=== PATIENT | female | born 1985 | race Caucasian/White ===

== ENCOUNTER → 2016-07-19 | Outpatient (CLI) | payer BC ==
[~2016-07-19] MED LIST: BUPR-267 PO; ESCI1TAB6 PO; PRENTAB69 PO
== END | disposition home or self-care (01) ==
LOC: C.LAB1850 10:06
PROVIDERS: ATTEND Obstetrics & Gynecology
DX: E03.9 Hypothyroidism, unspecified (principal)

== ENCOUNTER → 2016-11-22 | Outpatient (CLI) | payer BC ==
[2016-11-22 19:27] LABS: URINE APPEARANCE CLEAR (CLEAR); URINE BILIRUBIN NEG (NEG); URINE COLOR YELLOW; URINE EPITHELIAL CELL AUTO >30 /lpf (0-5); URINE NITRITE NEG (NEG); URINE PH 6.5 (4.5-7.5); URINE SPECIFIC GRAVITY 1.015 (1.000-1.030); UROBILINOGEN NEG (NEG)
[2016-11-22 19:28] LABS: MANUAL MICROSCOPIC REQUIRED? NO; REVIEW REQ? NO
== END | disposition home or self-care (01) ==
LOC: C.LABSPEC 17:38
PROVIDERS: ATTEND Obstetrics & Gynecology
DX: O09.00 Supervision of pregnancy with history of infertility, unspecified trimester (principal); Z3A.00 Weeks of gestation of pregnancy not specified

== ENCOUNTER → 2016-11-29 | Outpatient (CLI) | payer BC | END | disposition home or self-care (01) | LOC: C.PAPS 14:14 | PROVIDERS: ATTEND Obstetrics & Gynecology | DX: Z01.419 Encounter for gynecological examination (general) (routine) without abnormal findings (principal) ==

== ENCOUNTER → 2016-11-29 | Outpatient (CLI) | payer BC ==
[2016-11-29 12:11] LABS: BASO % 0.1 %; BASO ABS # 0.01 K/uL (0-0.2); COMPLETE YES; EOS % 0.2 %; IG% 0.1 %; LYMPH % 20.6 %; MEAN CELL VOLUME 90.9 fL (80-100); MEAN CORPUSCULAR HEMOGLOBIN 30.7 pg (25-34); MEAN CORPUSCULAR HGB CONC 33.8 g/dl (32-36); MEAN PLATELET VOLUME 10.6 fL (7.4-10.4); MONO % 6.8 %; NEUT % 72.2 %; PLATELET COUNT 262 K/uL (130-400); RED BLOOD COUNT 4.07 M/uL (4.2-5.4); WHITE BLOOD COUNT 8.72 K/uL (4.8-10.8)
[2016-11-29 13:21] LABS: THYROID STIMULATING HORMONE 1.75 uIu/ml (0.300-4.500)
[2016-12-03 07:06] LABS: CHLAMYDIA TRACH RNA*** NOT DETECTED (NOT DETECTED); GC (NEIS GONORRHOEAE)RNA** NOT DETECTED (NOT DETECTED)
== END | disposition home or self-care (01) ==
LOC: C.LAB1850 10:40
PROVIDERS: ATTEND Obstetrics & Gynecology
DX: O09.00 Supervision of pregnancy with history of infertility, unspecified trimester (principal); Z3A.00 Weeks of gestation of pregnancy not specified

== ENCOUNTER → 2016-12-27 | Outpatient (CLI) | payer BC ==
[2016-12-27 18:09] LABS: THYROID STIMULATING HORMONE 1.13 uIu/ml (0.300-4.500)
== END | disposition home or self-care (01) ==
LOC: C.LAB1850 16:07
PROVIDERS: ATTEND Obstetrics & Gynecology
DX: E03.9 Hypothyroidism, unspecified (principal)

== ENCOUNTER → 2017-01-18 | Outpatient (CLI) | payer BC ==
[2017-01-18 17:29] LABS: GTGD 50 Grams
[2017-01-18 17:45] LABS: THYROID STIMULATING HORMONE 1.23 uIu/ml (0.300-4.500)
== END | disposition home or self-care (01) ==
LOC: C.LAB1850 15:35
PROVIDERS: ATTEND Obstetrics & Gynecology
DX: O09.02 Supervision of pregnancy with history of infertility, second trimester (principal); E03.9 Hypothyroidism, unspecified

== ENCOUNTER → 2017-04-11 | Outpatient (CLI) | payer BC ==
[2017-04-11 16:31] LABS: HEMATOCRIT 31.6 % (37-47)
[2017-04-11 17:57] LABS: GTGD 50 Grams
== END | disposition home or self-care (01) ==
LOC: C.LAB1850 15:31
PROVIDERS: ATTEND Obstetrics & Gynecology
DX: O09.03 Supervision of pregnancy with history of infertility, third trimester (principal)

== ENCOUNTER → 2017-05-09 | Outpatient (CLI) | payer BC ==
[2017-05-09 18:17] LABS: URINE APPEARANCE CLEAR (CLEAR); URINE BILIRUBIN NEG (NEG); URINE COLOR YELLOW; URINE EPITHELIAL CELL AUTO >30 /lpf (0-5); URINE NITRITE NEG (NEG); URINE SPECIFIC GRAVITY 1.009 (1.000-1.030); UROBILINOGEN NEG (NEG)
[2017-05-09 18:20] LABS: MANUAL MICROSCOPIC REQUIRED? NO; REVIEW REQ? NO
== END | disposition home or self-care (01) ==
LOC: C.LABSPEC 17:38
PROVIDERS: ATTEND Obstetrics & Gynecology
DX: O09.03 Supervision of pregnancy with history of infertility, third trimester (principal); Z3A.00 Weeks of gestation of pregnancy not specified

== ENCOUNTER → 2017-06-10 | Outpatient (CLI) | payer OTHER | END | disposition home or self-care (01) | LOC: C.LABSPEC 17:32 | PROVIDERS: ATTEND Obstetrics & Gynecology | DX: O09.03 Supervision of pregnancy with history of infertility, third trimester (principal) ==

== ENCOUNTER 2017-06-30 06:36 | Inpatient (IN) | payer OTHER ==
[~2017-06-30] VITALS: Ht 170.2 cm; Wt 85.9 kg
[2017-06-30] MEDS ORDERED: LACTATED RINGER'S 1000ML 1,000 ML IV PRN ×2 (06:54→08:20)
[2017-06-30] MEDS ORDERED: EpHEDrine SULFATE INJ 50 MG/ML AMP ONE (07:01)
[2017-06-30] MEDS ORDERED: BUPIVACAINE 0.25% 30 ML VIAL ONE (07:01)
[2017-06-30] MEDS ORDERED: FENTANYL 2MCG/ML ROPIV 1.25MG/ML 100ML BAG EPI ONE (07:02)
[2017-06-30] MEDS ORDERED: FENTANYL CITRATE INJ 50 MCG/1 ML 2 ML VIAL ONE (07:02)
[2017-06-30] MEDS ORDERED: OXYTOCIN 30 UNITS/500ML NSS IV ONE (07:25)
[2017-06-30 07:51] VITALS: Ht 170.2 cm; Wt 85.9 kg
[2017-06-30 07:51] LABS: HEMOGLOBIN 11.7 g/dL (12.0-16.0); MEAN CELL VOLUME 93.4 fL (80-100); MEAN CORPUSCULAR HEMOGLOBIN 32.1 pg (25-34); MEAN CORPUSCULAR HGB CONC 34.4 g/dl (32-36); MEAN PLATELET VOLUME 11.1 fL (7.4-10.4); PLATELET COUNT 186 K/uL (130-400); RED CELL DISTRIBUTION WIDTH CV 13.2 % (11.5-14.5); RED CELL DISTRIBUTION WIDTH SD 45.2 fL (36.4-46.3); WHITE BLOOD COUNT 6.97 K/uL (4.8-10.8)
[2017-06-30] MEDS ORDERED: LACTATED RINGER'S 1000ML 1,000 ML IV SCH (08:20)
[2017-06-30] MEDS: LACTATED RINGER'S 1000ML 1,000 ML IV SCH (08:31)
[2017-06-30] MEDS ORDERED: LACTATED RINGER'S 1000ML 500 ML IV PRN (09:37)
[2017-06-30] MEDS ORDERED: NALOXONE HCL INJ 1 MG in SODIUM CHLORIDE 0.9% 1000ML 1,000 ML IV PRN (09:37)
[2017-06-30] MEDS ORDERED: FERR1TAB23 (09:43)
[2017-06-30] MEDS ORDERED: EpHEDrine SULFATE INJ 50 MG/ML AMP IV PRN (09:45)
[2017-06-30] MEDS ORDERED: ONDANSETRON INJ 2 MG/ML 2 ML VIAL IV PRN (09:45)
[2017-06-30] MEDS ORDERED: NALBUPHINE HCL INJ 10 MG/ML AMP IV PRN (09:45)
[2017-06-30] MEDS ORDERED: NALOXONE HCL 0.4 MG/1 ML VIAL/CARP IV PRN (09:45)
[2017-06-30] MEDS ORDERED: FENTANYL 2MCG/ML ROPIV 1.25MG/ML 100ML BAG EPI PRN (09:45)
[2017-06-30] MEDS ORDERED: DiphenhydrAMINE HCL 50 MG/ML VIAL IV PRN (09:45)
--- NOTE | 2017-06-30 13:10 | Medical Student: [facility] ---
Medical Student Delivery Note Patient is a 32 YOF now P2 who presented to L&D this morning with SROM and labor. Patient's history is remarkable only for being conceived while treated on femara. The patient does have a history of three prior abortions. She is O+, antibody screen negative, RI, HBV negative, HIV negative, VDRL/RPR nonreactive, G/C negative, and GBS negative. Patient received epidural analgesia once she reached 5cm dilation. Over the next 3 hours she continued in a normal labor pattern with a category 1 tracing. She was then fully dilated. The patient pushed for about a half hour to deliver a viable, vigorous female infant. No nuchal cord was present. The mouth and nares were bulb suctioned at the perineum. The was immediately placed on the mother's abdomen where the cord was doubly clamped and cut. The patient opted to bank the cord blood so the umbilical vein was cannulated and drained into the proper bag to be sent for banking. Remaining cord blood was obtained for lab analysis. The placenta was then delivered with gentle cord traction. Examination of the placenta was normal, with no evidence of retained placenta and a normal three vessel cord. Attention was then turned to the patient's perineum. A midline second degree laceration was noted and repaired in the usual fashion with 3-0 and 4-0 vicryl. Hemostasis was achieved after repair of the laceration. EBL for delivery is 300mL. Sponge and needle count were correct. At the time of this note, infant and mother are resting comfortably in labor and delivery.
[2017-06-30] MEDS ORDERED: LANOLIN OINT EXT PRN (13:15)
[2017-06-30] MEDS ORDERED: BENZOCAINE 20% AER SPR 82.5 GM CAN EXT PRN (13:15)
[2017-06-30] MEDS ORDERED: ACETAMINOPHEN 325 MG TAB PO PRN (13:15)
[2017-06-30] MEDS ORDERED: OXYCODONE/ACETAMINOPHEN 5-325 TAB PO PRN (13:15)
[2017-06-30] MEDS ORDERED: SUPERCREAM 0.870 % 15GM JAR EXT PRN (13:15)
[2017-06-30] MEDS ORDERED: OXYTOCIN 30 UNITS/500ML NSS IV PRN (13:15)
[2017-06-30] MEDS ORDERED: HYDROCORTISONE ACETATE 25 MG SUPP PR PRN (13:15)
--- NOTE | 2017-06-30 13:20 | Anesthesia Procedure Note ---
Anesthesia Epidural Removal Nt Date & Time Jun 30, 2017 at 13:19 Vital Signs Pain Intensity: 10.0 Notes Mental Status: alert / awake / arousable, participated in evaluation Nausea / Vomiting: adequately controlled Pain: adequately controlled Airway Patency, RR, SpO2: stable & adequate BP & HR: stable & adequate Hydration State: stable & adequate Neuraxial Anesthesia: was administered Anesthetic Complications: no major complications apparent, pt satisfied with anesthetic care Epidural: removed without complications, with tip intact
--- NOTE | 2017-06-30 13:38 | DELIVERY SUMMARY ---
DATE OF OPERATION: 06/30/2017 PREOPERATIVE DIAGNOSES: 1. Intrauterine at 39 weeks. 2. Active labor. POSTOPERATIVE DIAGNOSES: Same. PROCEDURES: 1. Epidural anesthesia. 2. Normal spontaneous vaginal delivery. 3. Second-degree perineal laceration with repair. SURGEON: Jeane Street MD [employer]: Dre Johansen MS3 ANESTHESIA: Epidural. ESTIMATED BLOOD LOSS: 400 mL. DESCRIPTION OF PROCEDURE: The patient presented to labor and delivery. She was ruptured and 5 cm dilated. She was admitted and underwent an epidural anesthesia. She became complete complete and +1 to +2 station. We attempted to push, but the patient had no feeling in her bottom and very poor effort behind the push because she could not feel well. Therefore, the epidural was turned back and when the patient was able to feel pressure and discomfort with contractions in her bottom, she pushed effectively to deliver a viable female infant in EVELYNE presentation. The nose and mouth were bulb suctioned. There was no nuchal cord. The rest of the infant was then delivered without difficulty. The infant was placed on the maternal abdomen for drying and attention. The cord was immediately clamped and cut and then the cord blood was collected for private donation. The placenta was delivered spontaneously intact with a 3-vessel cord. Cervix, sulci, and rectum were examined and found to be intact. Second degree perineal laceration was repaired in normal standard fashion. Estimated blood loss was 400 mL. Hemostasis was with dilute Pitocin and fundal massage. Apgars were 8 and 9. Weight pending. Mother and baby doing well at the end of the delivery. I attest to the content of the Intraoperative Record and any orders documented therein. Any exceptions are noted below. MTDNahed
[2017-06-30 16:05] VITALS: BP 112/72; PULSE 82; TEMP 36.9
[2017-06-30] MEDS: IBUPROFEN 600 MG TAB PO PRN ×2 (16:16→20:18)
[2017-06-30] MEDS ORDERED: LIDOCAINE/EPINEPHRINE 2% 1:200,000 20 ML SDV ONE (19:04)
[2017-06-30] MEDS: DOCUSATE SODIUM 100 MG CAP PO SCH (20:18)
[2017-06-30 20:30] VITALS: BP 108/71; PULSE 77; TEMP 36.4
[2017-07-01 00:15] VITALS: BP 114/75; PULSE 66; TEMP 36.8
[2017-07-01 05:15] VITALS: BP 112/74; PULSE 71; TEMP 36.7
[2017-07-01] MEDS: IBUPROFEN 600 MG TAB PO PRN ×3 (05:30→16:18)
--- NOTE | 2017-07-01 07:35 | Progress Note ---
Subjective Jul 01, 2017. Subjective conversation w/ patient (The patient was seen and examined at the bedside.) Ambulation: ambulating normally Voiding: no voiding problems Passing Gas: Yes Diet Tolerance: Regular Diet Lochia: Moderate Feeding Type: Breast Feeding Pain: 2/10 crampy abdominal pain with Review of Systems Constitutional: No fever, No chills, No sweats Respiratory: No cough, No shortness of breath Cardiac: No chest pain Breast: No breast pain Abdomen: No pain, No nausea, No vomiting Female : No dysuria Objective Vital Signs Date Time Temp Pulse Resp B/P (MAP) Pulse Ox O2 Delivery O2 Flow Rate FiO2 07/01/17 05:15 36.7 71 18 112/74 (87) Room Air 07/01/17 00:15 Room Air 07/01/17 00:15 36.8 66 16 114/75 (88) Room Air 06/30/17 20:30 36.4 77 20 108/71 (83) Room Air 06/30/17 16:05 36.9 82 18 112/72 (85) Room Air 06/30/17 16:05 Room Air Physical Exam General Appearance: WELL-APPEARING, WD/WN, NO APPARENT DISTRESS Respiratory/Chest: chest non-tender, lungs clear, normal breath sounds, no respiratory distress, no accessory muscle use Cardiovascular: regular rate, rhythm, no edema, no gallop, no murmur Abdomen: normal bowel sounds, non tender, soft Fundus: Firm, Non-Tender, Relation to Umbilicus (at u) Extremities: normal inspection, no pedal edema, no calf tenderness Laboratory Results Last 24 Hours Test 06/30/17 07:38 07/01/17 04:44 White Blood Count 6.97 K/uL Red Blood Count 3.64 M/uL Hemoglobin 11.7 g/dL Hematocrit 34.0 % Mean Corpuscular Volume 93.4 fL Mean Corpuscular Hemoglobin 32.1 pg Mean Corpuscular Hemoglobin Concent 34.4 g/dl RDW Standard Deviation 45.2 fL RDW Coefficient of Variation 13.2 % Platelet Count 186 K/uL Mean Platelet Volume 11.1 fL Medications Current Inpatient Medications Medications (Trade) Dose Ordered Sig/Cameron Route Start Time Stop Time Status Last Admin Dose Admin Oxytocin (Pitocin IV) 30 units UD PRN IV 06/30/17 13:15 07/30/17 13:14 Benzocaine (Dermoplast Aero Spr) 1 appln PRN PRN EXT 06/30/17 13:15 07/30/17 13:14 Cocaine HCl (Supercream 0.870% Cr) BID PRN EXT 06/30/17 13:15 07/14/17 13:14 Hydrocortisone Acetate (Anusol Hc Supp) 25 mg BID PRN AR 06/30/17 13:15 07/30/17 13:14 Lanolin (Lanolin Oint) PRN PRN EXT 06/30/17 13:15 07/30/17 13:14 Prenat Multivit/ [place]/Iron/Folic Ac ( Vitamin Tab) 1 tab DAILY PO 07/01/17 08:00 07/31/17 07:59 Ibuprofen (Motrin Tab) 600 mg Q4H PRN PO 06/30/17 13:15 07/30/17 13:14 07/01/17 05:30 600 MG Acetaminophen (Tylenol Tab) 650 mg Q6H PRN PO 06/30/17 13:15 07/30/17 13:14 Oxycodone/ Acetaminophen (Percocet 5-325mg Tab) 1 tab Q4H PRN PO 06/30/17 13:15 07/14/17 13:14 Docusate Sodium (coLACE CAP) 100 mg BID PO 06/30/17 20:00 07/30/17 19:59 06/30/17 20:18 100 MG Diphtheria/ Pertussis/Tetanus Vacc (Adacel Inj) 0.5 ml ONCE ONCE IM. 07/01/17 09:00 07/01/17 09:01 Assessment and Plan Post- Day#: 1 Continue Routine Care: Ms. Coronado is a 32 year old now 2 who is s/p NVD day 1 - patient doing well clinically - continue to encourage ambulation and - continue analgesia prn - monitor lochia and vital signs - hemoglobin 11.7 yesterday, will recheck today - anticipate d/c tomorrow Resident Physician Supervision Note: I interviewed and examined the patient. Discussed with Dr. Salter and agree with findings and plan as documented in the note. Any exceptions or clarifications are listed here: Doing well. Routine care. Documented By: Jeane Street Resident Tracking Resident Involvement: Resident Care Provided Care Provided: OB Delivery
[2017-07-01 07:49] LABS: HEMATOCRIT 29.9 % (37-47); HEMOGLOBIN 10.1 g/dL (12.0-16.0)
[2017-07-01] MEDS: DOCUSATE SODIUM 100 MG CAP PO SCH ×2 (08:22→19:33)
[2017-07-01] MEDS: PRENATAL VITAMIN TAB PO SCH (08:22)
[2017-07-01 08:32] VITALS: BP 102/66; PULSE 66; TEMP 36.7
[2017-07-01] MEDS ORDERED: DIPHTHERIA/TETANUS/PERTUSSIS 0.5 ML SYR/VIAL IM. ONE (09:00)
--- NOTE | 2017-07-01 09:13 | Discharge Instructions ---
Discharge Instructions Date of Service Jul 01, 2017. Admission Reason for Admission: LABOR Discharge Discharge Diagnosis / Problem: Vaginal Delivery Discharge Goals Goal(s): Routine recovery after delivery Medications Continue Dispensed Medications: supercream, dermaplast, tucks, lansinoh Activity Recommendations Activity Limitations: per Instructions/Follow-up section . Instructions / Follow-Up Instructions / Follow-Up ACTIVITY RECOMMENDATIONS: * Gradual return to full activity over the next 2-3 weeks. * No lifting - nothing heavier than baby over the next 2-3 weeks. * Do not engage in vigorous exercise, sexual activity or sports until cleared by your physician. * Do not drive or operate any motorized equipment until cleared by your physician. * You may shower/bathe daily. MEDICATIONS: For discomfort or pain, you may use Acetaminophen (Tylenol), Ibuprofen (Advil), or Naproxen (Aleve) following the package directions. For constipation you may use Colace following the package directions. BREAST CARE: If you are not breast feeding: * Wear a supportive bra 24 hours a day for one to two weeks. * Avoid stimulating your breasts and nipples as much as possible during the first few weeks after delivery. * When taking a shower, have the warm water hit your back, not breasts. * When your breasts feel full, apply ice packs. Usually three to four times a day helps ease the discomfort. * Take a mild pain medication (Tylenol / Motrin) when you are uncomfortable. If breast feeding: * Use breast milk to lubricate nipples. Lansinoh cream may be used for sore nipples. You do not need to remove cream prior to breast feeding. If using a different brand of cream, check the label for directions regarding removal of cream prior to nursing. * Wear a supportive bra. * If having problems with breasts or breast feeding, call a clinical sales consultant or your health care provider. EPISIOTOMY CARE: After delivery, if you have an episiotomy (stitches), the following steps will ease discomfort and aid healing. * For the first 24 hours after delivery, place ice packs next to your episiotomy to help reduce swelling. * After the first 24 hour-period, sitz baths, either portable or in the tub, are suggested. A shower with a shower arm sprayed over the episiotomy may be comforting. * Rere care should be done after each voiding and bowel movement. Squirt warm water from a plastic bottle over the perineum (region of the body between the anus and urinary opening) and pat dry. * Use Dermoplast to ease discomfort. Shake container. Ponder directly over the episiotomy. Place a Tucks on a clean sanitary pad next to your episiotomy. SPECIAL CARE INSTRUCTIONS: When you are discharged from the hospital, it is important for you to follow the instructions listed below: * During the first week at home, you should be able to care for yourself and your baby. In addition, the usual light household activities are encouraged. * Limit your activities to the way you feel. Do not try to clean the house or move furniture. Be sensible. * If you actively engage in sports and have done so up until the time of your delivery, you may resume these activities as soon as you feel able. This may take up to one month or even longer. Use good judgment. * Continue to take your vitamins for at least six weeks after the of your baby. * Your diet need not be limited unless you were on a special diet before your delivery. Breast-feeding mothers need around 2500 calories per day and at least 64-80 ounces of fluid per day (8 to 10 glasses). * You should eat foods from the four major food groups. Crash diets or fad diets are to be avoided. Eating lean meats, fresh fruits and vegetables, low-fat dairy products, high fiber foods and a regular exercise program, will help you get back to your pre- weight without putting your health at risk. * Constipation is sometimes a problem after delivery. Take a mild laxative as needed. If breast feeding, Milk of Magnesia is acceptable to use. You may use a suppository or Fleets enema if no episiotomy. * A daily shower or tub bath is suggested. Be sure to thoroughly and gently dry the perineum. * A bloody vaginal discharge will usually continue until around four weeks post . A small amount of bleeding may continue for as long as six weeks. Vaginal discharge changes from the bright red bleeding after delivery to pink then brownish and finally yellowish-pink before becoming white and disappearing. * Bleeding may increase with activity. Your first period may come in 4-8 weeks. If you are breast feeding, your period may be delayed even longer. * [place] (sex) can begin whenever both you and your partner feel comfortable and do not have any form of genital infection. It is recommended that you wait at least six weeks for internal and external healing to occur. If you have questions, please talk to your health care practitioner. A condom should be used to prevent infection and . * Foreplay, gentle intercourse and lubrication is very important the first several times to prevent pain. A water-based lubricant such as K-Y jelly or Astroglide may be used. * If you have RH negative blood and your baby is RH positive, you will receive RHOGAM by injection prior to discharge. The nurse will give you a card to keep with you that has the date and place that you received RHOGAM after delivery. * During your care, you had a Rubella screen done to check for the presence of rubella antibodies in your blood. If your test was negative, you will receive a Rubella vaccine prior to discharge. This vaccine may cause a fever, soreness at the injection site and flu-like symptoms. If these symptoms persist, notify your health care practitioner. is not advised for one month after a Rubella vaccine. * Verbalizes understanding of car seat law as reviewed with patient nursing. * Car Seat hand-out given and reviewed with patient by nursing. * Shaken baby information reviewed with patient by nursing. Call you doctor if: * Heavy bleeding (saturating several pads an hour) or passing clots the size of your fist. * A fever >101 degrees F (38.3 degrees C) on two occasions four hours apart and /or chills. * Unusual pain in the pelvic or vaginal areas. * "Baby Blues" lasting longer than two weeks. If you have any questions or concerns, call your health care practitioner at . FOLLOW UP VISIT: * Please call the office at to schedule a 6 week examination. It is important you keep this appointment. It is important for you to make arrangements for either yearly or twice yearly check-ups thereafter. Current Hospital Diet Patient's current hospital diet: Regular OB Diet Discharge Diet Recommended Diet: Regular Diet Pending Studies Studies pending at discharge: no Medical Emergencies . Who to Call and When: Medical Emergencies: If at any time you feel your situation is an emergency, please call 911 immediately. . Non-Emergent Contact Non-Emergency issues call your: Primary Care Provider . . "Provider Documentation" section prepared by Bloa Salter. . VTE Core Measure Inpt VTE Proph given/why not?: Treatment not indicated
[2017-07-01 11:30] VITALS: BP 117/77; PULSE 66; TEMP 36.6
[2017-07-01 16:10] VITALS: BP 115/78; PULSE 73; TEMP 36.9; O2SAT 98
[2017-07-01 23:10] VITALS: BP 120/74; PULSE 73; TEMP 36.7
[2017-07-02] MEDS: IBUPROFEN 600 MG TAB PO PRN ×2 (05:34→10:55)
--- NOTE | 2017-07-02 06:04 | Progress Note ---
Subjective Jul 02, 2017. Subjective conversation w/ patient (Patient seen and examined at bedside) Ambulation: ambulating normally Voiding: no voiding problems Passing Gas: Yes Diet Tolerance: Regular Diet Lochia: Moderate Feeding Type: Breast Feeding Pain: crampy abdominal pain with , well controlled w/analgesia Review of Systems Constitutional: No fever, No chills, No sweats Respiratory: No cough Cardiac: No chest pain Breast: No breast pain Abdomen: No pain, No nausea, No vomiting Female : No dysuria Objective Vital Signs Date Time Temp Pulse Resp B/P (MAP) Pulse Ox O2 Delivery O2 Flow Rate FiO2 07/01/17 23:10 Room Air 07/01/17 23:10 36.7 73 18 120/74 (89) Room Air 07/01/17 16:10 36.9 73 18 115/78 (90) 98 Room Air 07/01/17 16:10 98 Room Air 07/01/17 11:30 36.6 66 20 117/77 (90) 07/01/17 08:32 36.7 66 20 102/66 (78) Physical Exam General Appearance: WELL-APPEARING, WD/WN, NO APPARENT DISTRESS Respiratory/Chest: chest non-tender, lungs clear, normal breath sounds, no respiratory distress, no accessory muscle use Cardiovascular: regular rate, rhythm, no edema, no gallop, no murmur Abdomen: normal bowel sounds, non tender, soft Fundus: Firm, Non-Tender, Relation to Umbilicus (1 below u) Extremities: normal inspection, no pedal edema, no calf tenderness Laboratory Results Last 24 Hours Test 07/01/17 07:36 Hemoglobin 10.1 g/dL Hematocrit 29.9 % Medications Current Inpatient Medications Medications (Trade) Dose Ordered Sig/Cameron Route Start Time Stop Time Status Last Admin Dose Admin Oxytocin (Pitocin IV) 30 units UD PRN IV 06/30/17 13:15 07/30/17 13:14 Benzocaine (Dermoplast Aero Spr) 1 appln PRN PRN EXT 06/30/17 13:15 07/30/17 13:14 Cocaine HCl (Supercream 0.870% Cr) BID PRN EXT 06/30/17 13:15 07/14/17 13:14 Hydrocortisone Acetate (Anusol Hc Supp) 25 mg BID PRN DC 06/30/17 13:15 07/30/17 13:14 Lanolin (Lanolin Oint) PRN PRN EXT 06/30/17 13:15 07/30/17 13:14 Prenat Multivit/ [place]/Iron/Folic Ac ( Vitamin Tab) 1 tab DAILY PO 07/01/17 08:00 07/31/17 07:59 07/01/17 08:22 1 TAB Ibuprofen (Motrin Tab) 600 mg Q4H PRN PO 06/30/17 13:15 07/30/17 13:14 07/02/17 05:34 600 MG Acetaminophen (Tylenol Tab) 650 mg Q6H PRN PO 06/30/17 13:15 07/30/17 13:14 Oxycodone/ Acetaminophen (Percocet 5-325mg Tab) 1 tab Q4H PRN PO 06/30/17 13:15 07/14/17 13:14 Docusate Sodium (coLACE CAP) 100 mg BID PO 06/30/17 20:00 07/30/17 19:59 07/01/17 19:33 100 MG Assessment and Plan Post- Day#: 2 Continue Routine Care: Ms. Coronado is a 32 year old now 2 who is s/p NVD day 2 - patient doing well clinically - O+, GBS negative, rubella immune - continue to encourage ambulation and - continue analgesia prn - monitor lochia - vital signs reviewed and wnl - hemoglobin 11.7 --> 10.1 - will review d/c instructions as patient ready for discharge today Resident Physician Supervision Note: I was present with Dr. Salter during the history and exam. I discussed the case with the resident and agree with the findings and plan as documented in the note. Any exceptions or clarifications are listed here: PPD#2 doing well. Discharge home today. Documented By: Dina Kilgore Resident Tracking Resident Involvement: Resident Care Provided Care Provided: OB Delivery
[2017-07-02 07:22] VITALS: BP 110/72; PULSE 63; TEMP 36.6; O2SAT 96
[2017-07-02] MEDS: DOCUSATE SODIUM 100 MG CAP PO SCH (07:52)
[2017-07-02] MEDS: PRENATAL VITAMIN TAB PO SCH (07:52)
[2017-07-02 13:44] VITALS: BP_DIAS 72; PULSE 63; TEMP 36.6
== END 2017-07-02 13:56 | disposition home or self-care (01) | DRG 775 ==
LOC: C.OPB 06:36 → C.LD 06:36 → C.OPB 06:56 → C.LD 06:56 → C.OBG 15:33 → EDSTATUS 07-02 06:35
PROVIDERS: ADMIT Obstetrics & Gynecology; ATTEND Obstetrics & Gynecology
PROC: 0KQM0ZZ Repair Perineum Muscle, Open Approach (ICD-10-PCS; principal; 2017-06-30)
PROC: 10E0XZZ Delivery of Products of Conception, External Approach (ICD-10-PCS; principal; 2017-06-30)
DX: O70.1 Second degree perineal laceration during delivery (principal); Z3A.39 39 weeks gestation of pregnancy; Z37.0 Single live birth

== ENCOUNTER → 2017-12-28 | Outpatient (CLI) | payer OTHER ==
[~2017-12-28] MED LIST changes: -BUPR-267 PO; -ESCI1TAB6 PO; +FERR1TAB23
--- NOTE | 2017-12-28 09:39 | DIAGNOSTIC IMAGING REPORT ---
LEFT HAND 3 VIEWS CLINICAL HISTORY: Palpable lumps at the base of the third and fourth fingers. FINDINGS: 3 views of the left hand are obtained. No prior studies are available for comparison at the time of dictation. The skeletal structures are well mineralized. No fracture is seen. The joint spaces of the hand are well-maintained. The overlying soft tissues are normal in appearance. IMPRESSION: Unremarkable radiographic assessment of the left hand. Electronically signed by: Flaco Sharma M.D. 12/28/2017 9:38 AM Dictated Date/Time: 12/28/2017 9:37 AM
== END | disposition home or self-care (01) ==
LOC: C.RAD1850 09:22
PROVIDERS: ATTEND Family Medicine
DX: R22.32 Localized swelling, mass and lump, left upper limb (principal)